=== PATIENT | female | born 2000 | race Caucasian/White ===

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

== ENCOUNTER 2019-02-07 00:58 | Emergency (ER) | payer OTHER ==
[~2019-02-07 00:58] MED LIST changes: +ALBU90OI; +Cleocin HCl150 MG PO
== END 2019-02-07 04:12 | disposition left against medical advice (07) ==
LOC: ER 00:58
DX: Z53.21 Procedure and treatment not carried out due to patient leaving prior to being seen by health care provider (principal)

== ENCOUNTER 2019-02-08 14:01 | Emergency (ER) | payer OTHER ==
[~2019-02-08] VITALS: Ht 154.9 cm; Wt 59.0 kg
== END 2019-02-08 15:34 | disposition home or self-care (01) ==
LOC: ER 14:01
DX: S90.31XA Contusion of right foot, initial encounter (principal); W22.8XXA Striking against or struck by other objects, initial encounter; Z88.5 Allergy status to narcotic agent; Z88.8 Allergy status to other drugs, medicaments and biological substances; Z79.899 Other long term (current) drug therapy; J45.909 Unspecified asthma, uncomplicated; G40.909 Epilepsy, unspecified, not intractable, without status epilepticus; F17.200 Nicotine dependence, unspecified, uncomplicated
CPT/HCPCS: 73630; 99283-25

== ENCOUNTER 2019-04-12 23:22 | Emergency (ER) | payer OTHER ==
[~2019-04-12] VITALS: Ht 160 cm; Wt 59.0 kg
[2019-04-12 23:41] LABS: BASOPHILS ABSOLUTE AUTO 0.04 K/mm3 (0.00-0.23); BASOPHILS PERCENT AUTO 0 % (0-2); EOSINOPHILS ABSOLUTE AUTO 0.37 K/mm3 (0.00-0.68); EOSINOPHILS PERCENT AUTO 3 % (0-6); Hematocrit 35.5 % (33.0-51.0); Hemoglobin 10.5 g/dL (11.5-16.0); IMMATURE GRAN ABSOLUTE AUTO 0.02 K/mm3 (0.00-0.10); IMMATURE GRAN PERCENT AUTO 0 % (0-1); LYMPHOCYTES ABSOLUTE AUTO 2.63 K/mm3 (0.84-5.20); LYMPHOCYTES PERCENT AUTO 21 % (21-46); MONOCYTES ABSOLUTE AUTO 0.81 K/mm3 (0.16-1.47); MONOCYTES PERCENT AUTO 7 % (4-13); Mean Corpuscular HGB 22.5 pg (26.0-34.0); Mean Corpuscular HGB Conc 29.6 g/dL (31.5-36.5); Mean Corpuscular Volume 76 fL (80-100); NEUTROPHILS ABSOLUTE AUTO 8.53 K/mm3 (1.96-9.15); NEUTROPHILS PERCENT AUTO 69 % (41-73); Platelet Count 230 K/mm3 (150-400); RDW Coefficient Variation 17.2 % (11.7-14.2); RDW Standard Deviation 46.1 fL (35.1-46.3); Red Blood Cell Count 4.67 M/mm3 (3.80-5.20)
[2019-04-12 23:42] LABS: Mean Platelet Volume 12.2 fL (9.1-12.4)
[2019-04-12 23:44] LABS: PCO2 Arterial 37.5 mmHg (35-45); PO2 Arterial 115 mmHg (80-100); pH Blood Arterial 7.42 (7.35-7.45)
[2019-04-13] LABS: International Normalized Ratio 1.13; Prothrombin Time Results 11.8 Sec (9.7-11.5)
[2019-04-13 00:02] LABS: Alanine Aminotransfer (ALT/SGP 12 U/L (12-78); Albumin, Blood 3.6 g/dL (3.4-5.0); Alk Phos 54 U/L (45-116); Anion Gap 6 mmol/L (6-16); Aspartate Aminotrans (AST/SGOT 11 U/L (12-37); Bilirubin, Total 0.2 mg/dL (0.1-1.0); Blood Urea Nitrogen 8 mg/dL (8-21); Bun/Creatinine Ratio 11.9 (12.0-20.0); CO2, Blood 26 mmol/L (21-32); Calcium, Blood 8.6 mg/dL (8.5-10.1); Chloride, Blood 106 mmol/L (98-108); Creatinine, Blood 0.67 mg/dL (0.40-1.00); Ethanol (Alcohol), Blood, Med <3 mg/dL; Globulin, Blood 3.6 g/dL (2.2-4.0); Glomerular Filtration Rate >60 (60-); Glucose, Blood 138 mg/dL (70-99); Potassium, Blood 3.6 mmol/L (3.5-5.5); Sodium, Blood 138 mmol/L (136-145); Total Protein, Blood 7.2 g/dL (6.4-8.2)
== END 2019-04-13 01:15 | disposition home or self-care (01) ==
LOC: ER 23:22
PROVIDERS: Emergency Medicine
DX: S00.01XA Abrasion of scalp, initial encounter (principal); V47.6XXA Car passenger injured in collision with fixed or stationary object in traffic accident, initial encounter; Z88.5 Allergy status to narcotic agent; Z88.8 Allergy status to other drugs, medicaments and biological substances; J45.909 Unspecified asthma, uncomplicated; G40.909 Epilepsy, unspecified, not intractable, without status epilepticus; F17.200 Nicotine dependence, unspecified, uncomplicated
CPT/HCPCS: 36415; 36600; 70450; 71045; 71260; 72125; 72170; 74177; 80053; 82803; 83690; 85025; 85610; 85730; 86850; 86900; 86901; 96361; 96374; 96375; 99284-25; G0480; J2405; J3010; J7030; L0160; Q9967

== ENCOUNTER 2020-10-11 16:49 | Emergency (ER) | payer OTHER ==
[~2020-10-11] VITALS: Ht 157.5 cm; Wt 54.4 kg
[2020-10-11] MEDS ORDERED: ALBU90OI INH ×2 (17:00→17:53)
[2020-10-11] MEDS ORDERED: METPRE4DP PO (17:53)
== END 2020-10-11 19:28 | disposition home or self-care (01) ==
LOC: ER 16:49
DX: J45.901 Unspecified asthma with (acute) exacerbation (principal); F17.210 Nicotine dependence, cigarettes, uncomplicated; Z88.5 Allergy status to narcotic agent; Z20.822 Contact with and (suspected) exposure to COVID-19
CPT/HCPCS: 71045; 94640; 99285-25; J7509

== ENCOUNTER 2023-02-23 23:31 | Emergency (ER) | payer OTHER ==
[~2023-02-23] VITALS: Ht 154.9 cm; Wt 49.9 kg
[~2023-02-23 23:31] MED LIST changes: +METPRE4DP PO
[2023-02-24 00:11] VITALS: BP 155/88
[2023-02-24] MEDS ORDERED: Robaxin750 MG PO (00:35)
[2023-02-24] MEDS ORDERED: LIDO700A20 TOP (00:35)
== END 2023-02-24 00:45 | disposition home or self-care (01) ==
LOC: ER 23:31
DX: S39.012A Strain of muscle, fascia and tendon of lower back, initial encounter (principal); X58.XXXA Exposure to other specified factors, initial encounter; Z88.5 Allergy status to narcotic agent; Z79.899 Other long term (current) drug therapy; Z79.52 Long term (current) use of systemic steroids; G40.909 Epilepsy, unspecified, not intractable, without status epilepticus; F17.210 Nicotine dependence, cigarettes, uncomplicated
CPT/HCPCS: 99283; A9270

== ENCOUNTER 2024-09-21 19:08 | Emergency (ER) | payer OTHER ==
[~2024-09-21] VITALS: Ht 154.9 cm; Wt 45.4 kg
[~2024-09-21 19:08] MED LIST changes: +LIDO700A20 TOP; +Robaxin750 MG PO
[2024-09-21 19:29] VITALS: BP 138/87
[2024-09-21] MEDS ORDERED: Methadone HCL 10 MG TAB PO ONE (19:30)
== END 2024-09-21 20:35 | disposition home or self-care (01) ==
LOC: ER 19:08
DX: Z76.0 Encounter for issue of repeat prescription (principal); F11.90 Opioid use, unspecified, uncomplicated
CPT/HCPCS: 99281; A9270